=== PATIENT | male | born 1985 | race Caucasian/White ===

== ENCOUNTER 2020-10-23 17:12 | Emergency (ER) | payer SELFPAY ==
[2020-10-23 17:13] VITALS: BP 127/86; PULSE 59; RESP 16; O2SAT 98; BMI 22.8
--- NOTE | 2020-10-23 18:50 | HMH.EDGENADL ---
ED Disposition Clinical Impression: Dizziness Disposition: Home, Self-Care Condition on Discharge: Good Instructions: DI for Dizziness-Nonvertigo Additional Instructions: You are being provided with a list of physicians available for follow-up of your condition. Please call a physician on this list to arrange a follow-up appointment as soon as possible. Return to the emergency department if symptoms worsen. Referrals: Provider,Referral, [Primary Care Provider] - - Critical Care Critical Care Time: No Attestation: On 10/23/20, the high probability of a clinically significant, sudden or life threatening deterioration of the following system(s) required my full and direct attention, intervention and personal management. The time I documented below is in addition to time spent performing reported procedures but includes the following listed in this critical care notation. Medical Decision Making - Lisandro Inquiry Pt receiving controlled substance: No Vital Signs: 10/23/20 17:13 10/23/20 19:30 Pulse Rate 56 L Pulse Rate [Radial] 59 L Respiratory Rate 16 16 Blood Pressure 123/75 Blood Pressure [Right Arm] 127/86 Blood Pressure Mean 85 Blood Pressure Mean [Right Arm] 99 Blood Pressure Position [Right Arm] Sitting 02 Sat by Pulse Oximetry 98 100 Oxygen Delivery Method Room Air - Lab Data Lab Results 10/23/20 18:45: WBC 7.6, RBC 5.03, Hgb 14.7, Hct 44.1, MCV 87.7, MCH 29.1, MCHC 33.2, RDW 13.0, Plt Count 368, MPV 7.7, Neut % (Auto) 66.6, Lymph % (Auto) 27.9, Door % (Auto) 4.6, Eos % (Auto) 0.5, Baso % (Auto) 0.4, Neut # (Auto) 5.1, Lymph # (Auto) 2.1, Door # (Auto) 0.4, Eos # (Auto) 0.0, Baso # (Auto) 0.0 10/23/20 18:45: Sodium 140, Potassium 4.1, Chloride 103, Carbon Dioxide 28, Anion Gap 13.1, BUN 11, Creatinine 0.80, Estimated Creat Clear 124, Estimated GFR 110, Est GFR ( Amer) 133, Glucose 106 H, Calcium 9.1, Total Bilirubin 0.3, AST 23, ALT 8 L, Alkaline Phosphatase 106, Troponin I < 0.01, Total Protein 7.4, Albumin 4.4, Globulin 3.0, Albumin/Globulin Ratio 1.5 Result diagrams: 10/23/20 18:45 10/23/20 18:45 Orders (Tests/Meds): ORDERS Category Date Time Status Troponin I Q3H Lab 10/23/20 22:15 Ordered Troponin I Q3H Lab 10/24/20 01:15 Ordered - Radiology Data #1 Image(s): Chest Image Reviewed: Yes I have reviewed radiologist's interpretation 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 Views: 1 view. COMPARISON: No relevant prior studies available. FINDINGS: Lungs: Unremarkable. No consolidation. Pleural spaces: Unremarkable. No pleural effusion. No pneumothorax. Heart/Mediastinum: Unremarkable. No cardiomegaly. Bones/joints: Unremarkable. IMPRESSION: No acute findings. 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 General Adult HPI - General Chief complaint: Dizziness Stated complaint: sob and dizzy when working Time Seen by Provider: 10/23/20 18:51 Mode of Arrival: Ambulatory Limitations: No Limitations Description of Symptoms (Recalled from ER Triage Doc. by RN): TO ED PER [employer] CAR WITH C/O SOB, DIZZINESS, LIGHTHEADED, LEG WEAKNESS X 4-5 WEEKS ONLY WHILE WORKING TOBACCO. - History of Present Illness HPI narrative: The patient does not speak [place]. Communication via online accounts payable clerk. He states that for the
--- NOTE | 2020-10-23 18:55 | ECG_ITS ---
APPROVED REPORT Exam: Resting ECG HR:60 bpm ECG Measurements Heart Rate 60 AXES IA 146 P 52 QRSd 88 QRS 51 QT 436 T 53 QTc 436 Conclusion Normal sinus rhythm Normal ECG Electronically signed by : Karlos Bettencourt MD 10/25/2020 16:09:41
--- NOTE | 2020-10-23 19:11 | XR_ITS ---
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 Views: 1 view. COMPARISON: No relevant prior studies available. FINDINGS: Lungs: Unremarkable. No consolidation. Pleural spaces: Unremarkable. No pleural effusion. No pneumothorax. Heart/Mediastinum: Unremarkable. No cardiomegaly. Bones/joints: Unremarkable. IMPRESSION: No acute findings.
[2020-10-23 19:14] LABS: Basophils % 0.4 % (0.1-2.0); Eosinophils % 0.5 % (0.1-12.0); Hematocrit 44.1 % (42.0-52.0); Hemoglobin 14.7 g/dL (14.1-18.0); Lymphocytes # 2.1 K/mm3 (0.7-4.5); Lymphocytes % 27.9 % (10-50); Mean Corpuscular HGB Conc 33.2 g/dL (31.8-35.4); Mean Corpuscular Hemoglobin 29.1 pg (27.0-31.2); Mean Corpuscular Volume 87.7 fl (80-94); Mean Platelet Volume 7.7 fl (7.4-10.4); Monocytes # 0.4 K/mm3 (0.1-1.0); Monocytes % 4.6 % (1.7-9.3); Neutrophils # 5.1 K/mm3 (1.8-7.8); Neutrophils % 66.6 % (37.0-80.0); Platelet Count 368 K/mm3 (142-424); Red Blood Count 5.03 M/mm3 (4.60-6.20); White Blood Count 7.6 K/mm3 (4.8-10.8)
[2020-10-23 19:15] LABS: Chloride 103 mmol/L (98-107); Potassium 4.1 mmoL/L (3.5-5.1); Sodium 140 mmol/L (136-145)
[2020-10-23 19:18] LABS: Alanine Aminotransferase 8 U/L (12-78); Albumin Level 4.4 g/dl (3.5-5.0); Albumin/Globulin Ratio 1.5 (1.1-1.8); Alkaline Phosphatase 106 U/L (38-126); Anion Gap 13.1 mEq/L (5-15); Aspartate Amino Transferase 23 U/L (17-59); Bilirubin,Total 0.3 mg/dl (0.2-1.3); Blood Urea Nitrogen 11 mg/dl (9-20); Calcium 9.1 mg/dl (8.4-10.2); Carbon Dioxide 28 mmol/L (22.0-30.0); Creatinine Clearance Estimated 124 mL/min (50-200); Estimated Glomerular Filt Rate 110 ml/min (>60); GFR (African American) 133 ML/MIN (>60); Glucose 106 mg/dl (74-100); Total Protein,Serum 7.4 g/dl (6.3-8.2)
[2020-10-23 19:30] VITALS: BP 123/75; PULSE 56; RESP 16; O2SAT 100
[2020-10-23 19:50] LABS: Troponin I < 0.01 ng/ml (0.00-0.034)
[2020-10-23 20:57] VITALS: BP 110/70; PULSE 73; RESP 18; TEMP 36.7; O2SAT 98
== END 2020-10-23 20:57 | disposition home or self-care (01) ==
LOC: UTC 17:17 → ER 17:20
PROVIDERS: Emergency Medicine; Emergency Provider Emergency Medicine
DX: R42 Dizziness and giddiness (principal); R06.02 Shortness of breath; R53.83 Other fatigue
CPT/HCPCS: 71045; 80053; 84484; 85025; 93005; 99283